=== PATIENT | male | born 1985 | race Caucasian/White ===

== ENCOUNTER 2018-12-21 11:38 | Day surgery (SDC) | payer OTHER ==
[~2018-12-21] VITALS: Ht 167.6 cm; Wt 56.2 kg
== END 2018-12-21 17:06 | disposition home or self-care (01) ==
LOC: ORSCSDS 11:38
PROVIDERS: Dentist Pediatric Dentistry
PROC: 0CRX0J1 Replacement of Lower Tooth, Multiple, with Synthetic Substitute, Open Approach (ICD-10-PCS; principal; 2018-12-21 13:00)
PROC: 0CDWXZ1 Extraction of Upper Tooth, Multiple, External Approach (ICD-10-PCS; principal; 2018-12-21 13:00)
PROC: 0CDXXZ1 Extraction of Lower Tooth, Multiple, External Approach (ICD-10-PCS; principal; 2018-12-21 13:00)
PROC: 0CRW0J1 Replacement of Upper Tooth, Multiple, with Synthetic Substitute, Open Approach (ICD-10-PCS; principal; 2018-12-21 13:00)
DX: K02.9 Dental caries, unspecified (principal); K04.7 Periapical abscess without sinus; K03.81 Cracked tooth; Q93.51 Angelman syndrome; F88 Other disorders of psychological development
CPT/HCPCS: J1100; J2405; J3010

== ENCOUNTER 2020-09-11 07:44 | Emergency (ER) | payer OTHER ==
[~2020-09-11] VITALS: Ht 167.6 cm; Wt 55.8 kg
[2020-09-11 10:20] LABS: BASOPHILS ABSOLUTE AUTO 0.04 K/mm3 (0.00-0.23); BASOPHILS PERCENT AUTO 0 % (0-2); EOSINOPHILS ABSOLUTE AUTO 0.06 K/mm3 (0.00-0.68); EOSINOPHILS PERCENT AUTO 1 % (0-6); Hematocrit 46.6 % (37.0-53.0); IMMATURE GRAN ABSOLUTE AUTO 0.05 K/mm3 (0.00-0.10); IMMATURE GRAN PERCENT AUTO 0 % (0-1); LYMPHOCYTES ABSOLUTE AUTO 2.24 K/mm3 (0.84-5.20); LYMPHOCYTES PERCENT AUTO 19 % (21-46); MONOCYTES ABSOLUTE AUTO 1.39 K/mm3 (0.16-1.47); MONOCYTES PERCENT AUTO 12 % (4-13); Mean Corpuscular HGB 29.3 pg (26.0-34.0); Mean Corpuscular HGB Conc 32.2 g/dL (31.5-36.5); Mean Corpuscular Volume 91 fL (80-100); Mean Platelet Volume 10.2 fL (9.1-12.4); NEUTROPHILS ABSOLUTE AUTO 8.13 K/mm3 (1.96-9.15); NEUTROPHILS PERCENT AUTO 68 % (41-73); Platelet Count 253 K/mm3 (150-400); RDW Coefficient Variation 12.8 % (11.7-14.2); RDW Standard Deviation 43.5 fL (35.1-46.3); Red Blood Cell Count 5.12 M/mm3 (4.30-5.90); White Blood Cell Count 11.91 K/mm3 (4.00-11.30)
[2020-09-11] MEDS ORDERED: HYDR1TAB94 PO (10:35)
[2020-09-11] MEDS ORDERED: CEPH500 PO (10:35)
[2020-09-11 10:42] LABS: Alanine Aminotransfer (ALT/SGP 17 U/L (12-78); Albumin, Blood 4.1 g/dL (3.4-5.0); Alk Phos 101 U/L (50-136); Anion Gap 4 mmol/L (6-16); Aspartate Aminotrans (AST/SGOT 16 U/L (12-37); Bilirubin, Total 0.5 mg/dL (0.1-1.0); Blood Urea Nitrogen 10 mg/dL (8-24); Bun/Creatinine Ratio 14.8 (12.0-20.0); CO2, Blood 31 mmol/L (21-32); Calcium, Blood 9.3 mg/dL (8.5-10.1); Chloride, Blood 106 mmol/L (98-108); Creatinine, Blood 0.68 mg/dL (0.60-1.20); Globulin, Blood 4.2 g/dL (2.2-4.0); Glomerular Filtration Rate >60 (60-); Glucose, Blood 76 mg/dL (70-99); Potassium, Blood 3.7 mmol/L (3.5-5.5); Sodium, Blood 141 mmol/L (136-145); Total Protein, Blood 8.3 g/dL (6.4-8.2)
== END 2020-09-11 11:20 | disposition home or self-care (01) ==
LOC: ER 07:44
PROVIDERS: Emergency Medicine
DX: L72.3 Sebaceous cyst (principal); K59.00 Constipation, unspecified
CPT/HCPCS: 36415; 76857; 80053; 85025; 96374; 99284-25; A9270-GY; J2270

== ENCOUNTER 2020-12-07 12:59 | Emergency (ER) | payer OTHER ==
[~2020-12-07] VITALS: Ht 170.2 cm; Wt 55.8 kg
[~2020-12-07 12:59] MED LIST: CEPH500 PO; HYDR1TAB94 PO
== END 2020-12-07 13:50 | disposition home or self-care (01) ==
LOC: ER 12:59
DX: S61.210A Laceration without foreign body of right index finger without damage to nail, initial encounter (principal); W23.0XXA Caught, crushed, jammed, or pinched between moving objects, initial encounter
CPT/HCPCS: 12001; 99282-25

== ENCOUNTER 2023-03-17 12:02 | Emergency (ER) | payer OTHER ==
[~2023-03-17] VITALS: Ht 172.7 cm; Wt 57.1 kg
== END 2023-03-17 14:23 | disposition home or self-care (01) ==
LOC: ER 12:02
DX: Z04.89 Encounter for examination and observation for other specified reasons (principal)
CPT/HCPCS: 74022

== ENCOUNTER 2024-12-24 17:38 | Observation (INO) | payer OTHER ==
[~2024-12-24] VITALS: Ht 167.6 cm; Wt 52.5 kg
[2024-12-24 18:38] LABS: BASOPHILS ABSOLUTE AUTO 0.03 K/mm3 (0.00-0.23); BASOPHILS PERCENT AUTO 0 % (0-2); EOSINOPHILS ABSOLUTE AUTO 0.13 K/mm3 (0.00-0.68); EOSINOPHILS PERCENT AUTO 2 % (0-6); Hemoglobin 13.9 g/dL (13.5-17.5); IMMATURE GRAN ABSOLUTE AUTO 0.02 K/mm3 (0.00-0.10); IMMATURE GRAN PERCENT AUTO 0 % (0-1); LYMPHOCYTES ABSOLUTE AUTO 3.03 K/mm3 (0.84-5.20); LYMPHOCYTES PERCENT AUTO 44 % (21-46); MONOCYTES ABSOLUTE AUTO 0.72 K/mm3 (0.16-1.47); MONOCYTES PERCENT AUTO 10 % (4-13); Mean Corpuscular HGB 29.6 pg (26.0-34.0); Mean Corpuscular HGB Conc 33.1 g/dL (31.5-36.5); Mean Corpuscular Volume 90 fL (80-100); Mean Platelet Volume 9.9 fL (9.1-12.4); NEUTROPHILS ABSOLUTE AUTO 3.03 K/mm3 (1.96-9.15); NEUTROPHILS PERCENT AUTO 44 % (41-73); Platelet Count 253 K/mm3 (150-400); RDW Standard Deviation 42.4 fL (35.1-46.3); Red Blood Cell Count 4.69 M/mm3 (4.30-5.90); White Blood Cell Count 6.96 K/mm3 (4.00-11.30)
[2024-12-24 19:00] LABS: Albumin, Blood 4.1 g/dL (3.4-5.0); Albumin/Globulin Ratio 1.2 (0.8-1.8); Bilirubin, Total 0.4 mg/dL (0.1-1.0); Bun/Creatinine Ratio 12.6 (12.0-20.0); Calcium, Blood 8.9 mg/dL (8.5-10.1); Creatinine, Blood 0.79 mg/dL (0.60-1.20); Globulin, Blood 3.3 g/dL (2.2-4.0); Potassium, Blood 4.1 mmol/L (3.5-5.5); Total Protein, Blood 7.4 g/dL (6.4-8.2)
[2024-12-24] MEDS ORDERED: LORazepam 2 MG/ML 1ML Injection IV ONE (19:55)
[2024-12-24] MEDS ORDERED: Milk 150ML/Molasses 150ML (300ML Total) PR ONE (21:45)
[2024-12-24] MEDS ORDERED: Lactulose 20 GM/30 ML UDC PO ONE (22:30)
[2024-12-24] MEDS ORDERED: Ondansetron HCl 2 MG / ML 2ML Vial IV PRN (22:50)
[2024-12-24] MEDS ORDERED: FLU VACC TS2024-25(6MOS UP)/PF 45 MCG/0.5 ML SYRINGE IM ONE (22:50)
[2024-12-24] MEDS ORDERED: NS 1,000 ML IV SCH (22:50)
[2024-12-24] MEDS ORDERED: Enoxaparin 40 MG/0.4 ML SYR SC SCH (23:00)
[2024-12-24 23:47] VITALS: BP 117/79
[2024-12-25] MEDS ORDERED: Lactulose 20 GM/30 ML UDC PO ONE (01:05)
--- NOTE | 2024-12-25 02:29 | NUR ---
HOSPITALIST CONTACT PT FAMILY AT BEDSIDE. FAMILY REPORTS PT HAS HX OF EATING NON FOOD ITEMS COMPULSIVELY--RUBBER, PAPER, PLASTIC, AND LEATHER ITEMS. PT HAS TELE ORDER AND FAMILY CONCERNED PT WOULD ATTEMPT TO INGEST. CALL TO BEHAVIORAL THERAPY COORDINATOR HOSPITALIST. SPOKE TO DR MENSAH ABOUT CONCERN. PT DOES NOT HAVE A CARDIAC HX. APPROVED ORDER TO D/C TELE. ALSO APPROVED ORDER TO ADD SIPS AND CHIPS TOLERATED.
[2024-12-25 04:12] VITALS: BP 86/66
[2024-12-25 04:14] VITALS: BP 115/64
--- NOTE | 2024-12-25 04:56 | NUR ---
NEW ADMISSION, PT HAS HAD 3 SMALL LIQUID BROWN STOOLS. [facility] PT NONVERBAL AND PULLS AT LINES AND ATTENDS UNLESS LINES ARE HIDDEN UNDER CLOTHING. NO S/S OF PAIN OR DISTRESS NOTED DURING THIS SHIFT. PT INCONTINENT OF BLADDER AND BOWL.
[2024-12-25 05:35] LABS: BASOPHILS ABSOLUTE AUTO 0.02 K/mm3 (0.00-0.23); BASOPHILS PERCENT AUTO 0 % (0-2); EOSINOPHILS ABSOLUTE AUTO 0.06 K/mm3 (0.00-0.68); EOSINOPHILS PERCENT AUTO 1 % (0-6); Hematocrit 41.5 % (37.0-53.0); Hemoglobin 13.8 g/dL (13.5-17.5); IMMATURE GRAN ABSOLUTE AUTO 0.03 K/mm3 (0.00-0.10); IMMATURE GRAN PERCENT AUTO 0 % (0-1); LYMPHOCYTES ABSOLUTE AUTO 2.19 K/mm3 (0.84-5.20); LYMPHOCYTES PERCENT AUTO 22 % (21-46); MONOCYTES ABSOLUTE AUTO 0.83 K/mm3 (0.16-1.47); MONOCYTES PERCENT AUTO 8 % (4-13); Mean Corpuscular HGB 30.1 pg (26.0-34.0); Mean Corpuscular HGB Conc 33.3 g/dL (31.5-36.5); Mean Corpuscular Volume 90 fL (80-100); Mean Platelet Volume 10.1 fL (9.1-12.4); NEUTROPHILS ABSOLUTE AUTO 6.72 K/mm3 (1.96-9.15); NEUTROPHILS PERCENT AUTO 68 % (41-73); Platelet Count 241 K/mm3 (150-400); RDW Coefficient Variation 12.9 % (11.7-14.2); RDW Standard Deviation 42.3 fL (35.1-46.3); Red Blood Cell Count 4.59 M/mm3 (4.30-5.90); White Blood Cell Count 9.85 K/mm3 (4.00-11.30)
[2024-12-25 06:09] LABS: Albumin, Blood 4.3 g/dL (3.4-5.0); Albumin/Globulin Ratio 1.3 (0.8-1.8); Bilirubin, Total 0.5 mg/dL (0.1-1.0); Bun/Creatinine Ratio 10.7 (12.0-20.0); Calcium, Blood 8.9 mg/dL (8.5-10.1); Creatinine, Blood 0.75 mg/dL (0.60-1.20); Globulin, Blood 3.3 g/dL (2.2-4.0); Total Protein, Blood 7.6 g/dL (6.4-8.2)
[2024-12-25] MEDS ORDERED: Magnesium Hydroxide Conc 10 ML UDC PO SCH (09:00)
[2024-12-25] MEDS ORDERED: Bisacodyl 10 MG Supp PR SCH (09:00)
[2024-12-25] MEDS ORDERED: Lactulose 20 GM/30 ML UDC PO SCH (09:00)
[2024-12-25] MEDS ORDERED: Sod Phosphate/Sod Biphosphate 132 ML BTL PR PRN (09:45)
[2024-12-25] MEDS ORDERED: Polyethylene Glycol 3350 17 gm PO PRN (14:10)
--- NOTE | 2024-12-25 18:30 | NUR ---
SHIFT SUMMARY PATIENT ALERT AND ACTIVE. PATIENT IS NON VERBAL. MOTHER AND SISTER AT BEDSIDE AND ASSISTING IN CARE. PATIENT IS ABLE TO TAKE A FEW STEPS WITH MOTHERS ASSISTANCE AND TOOK A RIDE AROUND THE UNIT IN WHEELCHAIR. PATIENT HAD A LARGE BM AFTER SUPPOSITORY AND ANOTHER LARGE LIQUID STOOL AFTER ENEMA. AFTER BOWEL MOVEMENTS AND GETTING OUT OF BED FOR A BIT, PATIENT WAS ABLE TO SLEEP. PATIENT TOLERATING FOOD. FAMILY STATES THAT HE PREFERS SWEETER FOOD LIKE PUDDING. MOTHER VERBALIZING CONCERNS ABOUT MANANGING CONSTIPATION AT HOME. PROVIDED EDUCATION RELATED TO BOWEL PROGRAM.
[2024-12-25 19:48] VITALS: BP 91/62
[2024-12-25] MEDS ORDERED: Docusate Sodium/Senna 1 Tab PO SCH (21:00)
[2024-12-26] MEDS ORDERED: ZINC OXIDE/PETROLATUM, YELLOW 1 APPLIC/71 GM PASTE TOP SCH (02:45)
--- NOTE | 2024-12-26 06:30 | NUR ---
SHIFT SUMMARY PATIENT HAS NOT BEEN ALERT AND ORIENTED FOR ME THIS SHIFT. PATIENT HAS HAD NO ACUTE EVENTS THIS SHIFT. PATIENT HAS BEEN SLEEPING MOST OF SHIFT. PATIENTS FAMILY HAS STAYED ALL SHIFT AND WERE HELPFUL WITH CARE. PATIENT HAS HAD NO ADDITIONAL BMS THIS SHIFT. VITAL SIGNS REVIEWED. PATIENT SPIT UP SOME ACCORDING TO FAMILY BUT WAS MINIMAL ON DESCRIPTION. BED IN LOCKED AND LOWEST POSITION. CALL LIGHT IN PLACE.
[2024-12-26] MEDS ORDERED: Docusate Sodium/Senna 1 Tab PO SCH (12:00)
--- NOTE | 2024-12-26 14:34 | NUR ---
MET WITH PATIENT AND HIS MOM PIERCE. PATIENT IS LAYING IN BED AND APPEARS COMFORTABLE. PIERCE IS HIS CAREGIVER. WE DISCUSSED ADVANCED CARE PLANNING. SHE APPEARED UNCOMFORTABLE WITH THIS TOPIC AT FIRST AND STATED "THESE ARE HARD THINGS TO TALK ABOUT". I EXPRESSED UNDERSTANDING AND NORMILIZED HER FEELINGS. I RELAYED THAT NO DECISIONS HAD TO BE MADE NOW BUT NOT A BAD IDEA TO PREPARE JUST INCASE THINGS ARRISE. I ENCOURAGED HER TO TALK NOT ONLY ABOUT [place] BUT HER DAUGHTERS AND HERSELF SO THAT THERE IS AN UNDERSTANDING WHAT EVERYONE WOULD WANT AND CAN RESPECT EACHOTHERS WISHES IF THINGS ARRISE. I PROVIDED A POLST, AD, AND A COPY OF "HARD CHOICES FOR LOVING PEOPLE". WE HAD THERAPUTIC DISCUSSION AND SHARED STORIES OF LOVED ONES AND THEIR MEDICAL JOURNEYS. SHE EXPRESSED GRATITUDE FOR MY VISIT.
--- NOTE | 2024-12-26 18:05 | NUR ---
SHIFT SUMMARY PATIENT ALERT AND INTERACTIVE BUT NON VERBAL. PATIENT UP OOB AT TIMES AND IN WHEELCHAIR TO MOBILIZE. PATIENT HAD A LARGE BM AFTER SUPPOSITORY. STOOL GRAINY BUT SOFT. PATIENT MORE COOPERATIVE WITH STAFF TODAY WITH PERSONAL CARE NEEDS. PATIENT EATING WELL. NO SIGNS OF NAUSEA OR VOMITTING. MOTHER CONTINUES TO BE VERY ANXIOUS ABOUT [facility] PLAN. CONTINUE TO PROVIDE EDUCATION RELATED TO NEED OF REGULAR BOWEL CARE AND PRN OPTIONS WHEN NEEDED. MOTHER AND SISTER AT BEDSIDE TO ASSIST WITH CARE NEEDED.
[2024-12-26 19:18] VITALS: BP 84/56
[2024-12-26] MEDS ORDERED: Magnesium Oxide 400 MG Tab PO SCH (21:00)
--- NOTE | 2024-12-27 06:09 | NUR ---
SHIFT SUMMARY PT SLEPT LONG INTERVALS THROUGH THE NIGHT. AT START OF SHIFT PT NOT WAKING UP ENOUGH TO TAKE MEDICATIONS, BUT ABLE TO GIVE MEDS LATER IN SHIFT. PT NONVERBAL, FAMILY AT BEDSIDE. NO BM DURING THE SHIFT. BED IN LOWEST POSITION, CALL LIGHT WITHIN REACH, SIDERAILS UP X 2.
--- NOTE | 2024-12-27 07:39 | NUR ---
ASSUMPTION OF CARE: ASSUMED CARE OF PATIENT. CALL LIGHT GOING OFF AND ANSWERED DURING SHIFT-CHANGE REPORT. PATIENT AWAKE, STANDING WITH MOTHER (PIERCE) AND SISTER (YISEL) HELPING TO CLEAN PATIENT, WHO HAD JUST HAD A LARGE, DARK BROWN, SOFT STOOL. PLAN OF CARE DISCUSSED. PATIENT SAT IN WHEELCHAIR AND SISTER TOOK HIM FOR A STROLL AROUND THE UNIT. NO ACUTE NEEDS.
[2024-12-27] MEDS ORDERED: DOCUZEN 8.6-501 EACH PO (12:28)
[2024-12-27] MEDS ORDERED: BISA10S PR (12:28)
[2024-12-27] MEDS ORDERED: MAGNESIUM OXID500 MG PO (12:29)
[2024-12-27] MEDS ORDERED: Fleet Enema132 ML PR (12:30)
--- NOTE | 2024-12-27 13:33 | NUR ---
DISCHARGE SUMMARY: ALERT. ORIENTED, THOUGH DIFFICULT TO DISCERN SECONDARY TO COGNITIVE IMPAIRMENT. PLEASANT AND COOPERATIVE WITH CARE, PROVIDED MOSTLY BY MOTHER, PIERCE, AND SISTER, YISEL. 1PA FOR AMBULATION BUT USES WHEELCHAIR WITH ASSISTANCE AT BASELINE. CAN SELF-PROPEL IN WHEELCHAIR. MEDS WHOLE c CHOCOLATE PUDDING. SHOWERED TODAY. LARGE BM AT BEGINNING OF SHIFT. MEDICATIONS FAXED TO [facility]. INSTRUCTED TO FOLLOW-UP WITH PROVIDERS ORDERED. LEFT FLOOR WITH ALL BELONGINGS AND DISCHARGE PACKET IN HIS PERSONAL WHEELCHAIR, ESCORTED BY SISTER AND MOTHER, PROVIDING TRANSPORTATION.
== END 2024-12-27 12:54 | disposition home or self-care (01) ==
LOC: ER 17:38 → ERHOLD 17:39 → MEDS 17:39
PROVIDERS: Physician Assistant; ADMIT Internal Medicine
DX: K59.00 Constipation, unspecified (principal); E86.0 Dehydration; Q93.51 Angelman syndrome; M41.9 Scoliosis, unspecified; R62.50 Unspecified lack of expected normal physiological development in childhood
CPT/HCPCS: 36415; 74177; 80053; 83605; 83880; 84443; 85025; 96374-59; 99284-25; A9270; G0378; J2060; J7030; Q9967